=== PATIENT | male | born 1955 | race Caucasian/White ===

== ENCOUNTER 2016-09-02 06:52 | Inpatient (IN) | payer OTHER ==
--- NOTE | 2016-08-30 10:24 | HP ---
DATE OF CLINIC: 08/21/2016 JESSIE GIVENS : 1955 PLANNED PROCEDURE: Left Total Hip Arthroplasty DATE OF PROCEDURE: September 02, 2016 SURGEON: Riky Good M.D. PCP: Dr. Angus Abad HISTORY OF PRESENT ILLNESS Jessie Givens is a 60 year old male. * Medication list reviewed with patient allergy list reviewed with patient. * Tried NSAIDS * Tried Injections fluoro guided cortisone injection 04/04/16 * Has not tried Physical Therapy Mr. Givens is in today pre-operatively for his upcoming left total hip arthroplasty with Dr. Good on 09/02/16. Patient presents in good spirits and is ready to proceed. He states he picked up a "cold" from his grand-daughter resulting in a cough and diarrhea for a few days. This left him with some low back pain and intestinal cramping which has improved. No fever otherwise. No symptoms. No prior surgical complications. 60-year-old male well-known to me in the past for a right Verner hip resurfacing in 2009 from which he has done very well. Unfortunately, he has had progressive left hip pain from the groin radiating to his knee. It is becoming much more difficult to manage primarily with weight-bearing activities. He has no radicular symptoms. Workup has included prior radiographs as well as an intraarticular injection. This provided significant relief, but unfortunately for less than 24 hours. He has recently been seen on 05/09/16 by Dalton. Of note, he does have some problems with low back pain with some radiation into the right buttock. He has used non-steroidal anti-inflammatories with some improvement. He is interested in discussion of definitive management options. No significant medical comorbidities. He is a non-smoker. He does use recreational marijuana. CURRENT MEDICATION * Centrum Silver Adult 50+ Tablet 1 once a day 0 days, 0 refills * Naproxen 375 MG Tablet 1 twice a day 0 days, 0 refills * PriLOSEC 20 MG Capsule Delayed Release as needed 0 days, 0 refills PAST MEDICAL/SURGICAL HISTORY Reported: Medical: Depression and Asthma as a child. Surgical / Procedural: Surgical / procedural history Lymph gland removal, hernia sx, vasectomy Apr 1982 and replacement of a hip Right hip resurfacing 11/06/2009. Total Right Hip Replacement Rt R 11/06/09 by? Dr. Good. SOCIAL HISTORY Behavioral: Caffeine use and non-smoker quit smoking stopped in 2000 after smoking half a pack a day for 20 years. Smoking status: Former smoker. Alcohol: Alcohol 1-2 beers 2-3 times a week. Drug Use: Drug use marijuana and alcohol. 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 ALLERGIES * No Known Allergies FAMILY HISTORY Father ill thyroid disease Mother ill thyroid disease REVIEW OF SYSTEMS Systemic: No fever and no recent weight change. Head: No head symptoms. Cardiovascular: No cardiovascular symptoms. Pulmonary: No pulmonary symptoms. Gastrointestinal: Gastrointestinal symptoms mild cramping, BM's normalizing following recent cold. No change in urination. Psychological: No psychological symptoms. Skin: No skin lesions and no rash. PHYSICAL FINDINGS * Vitals taken 08/21/2016 10:03 am BP-Sitting L 144/84 mmHg 100 - 120/60 - 80 BP Cuff Size Regular Pulse Rate-Sitting 68 bpm 50 - 100 Temp-Oral 97.3 F 96 - 101 Height 66.75 in 64 - 74 Weight 149 lbs 123 - 215 Body Mass Index 23.5 kg/m2 Body Surface Area 1.78 m2 Pain Level 3 Ears, Nose, Throat: * ENT: normal. Lungs: * Clear to auscultation. Cardiovascular: Heart Rate and Rhythm: * Normal. Abdomen: * Normal. Neurological: Motor: * Dominant Hand = Right Hand. Patient is a well-developed, well-nourished male in no acute distress, normal appearing mood and affect. He ambulates with an antalgic, non-Trendelenburg gait. His pelvis is level. Evaluation of his left hip shows no focal tenderness over the trochanter, groin or sciatic notch. Flexion 85, just shy of neutral IR with exacerbation of groin pain, ER 40 degrees with posterior radiating pain. Abduction 25, adduction just shy of the midline and full extension. Thigh is soft and NT. No atrophy or asymmetry compared to the contralateral side. Evaluation of the knee shows skin integrity to be well-preserved, no wounds, rashes or lesions. No swelling or effusion. No focal periarticular tenderness. Motion is 0 to past 130 degrees. Calf is soft and NT. Distal light touch sensation and motor function are grossly intact and symmetric. Pulses are palpable. Sitting SLR is negative. Right hip shows non-irritable exam greater than 90 degrees of flexion, 30 degrees IR, 55 degrees ER, 50 degrees of abduction, he can adduct past the midline and extend fully. TESTS Pelvis and left hip from 03/27/16 reviewed. This shows marked degenerative changes of the left hip with complete superior joint space loss, superolateral femoral head flattening. Medially and Inferomedially there is a large osteophyte with sclerosis. There is blunting of the femoral head and neck junction laterally. Proximal mineralization appears normal. Limited view of the contralateral hip shows a Verner hip resurfacing arthroplasty in reasonable position and alignment. No change compared to prior films from 2009. ASSESSMENT * Localized primary osteoarthritis of the left hip Advanced DJD, left hip. Greater than 6 years post right Suleiman hip resurfacing arthroplasty, doing well clinically. PREVIOUS TESTS * Test: URINALYSIS WITH MICROSCOPIC Report Date: 08/14/2016 EPITHELIAL CELL 0-2 WBC 0-1 GLUCOSE NEGATIVE BACTERIA 1+ PH,URINE 6.0 SPEC. GRAVITY 1.025 KETONE 2+ NITRITE NEGATIVE RBC 10-15 BLOOD 1+ BILIRUBIN NEGATIVE APPEARANCE CLEAR PROTEIN 1+ COLOR ANUSHA LEUK ESTERASE NEGATIVE UROBILINOGEN NORMAL MUCUS 1+ * Test: CBC WITH DIFF Report Date: 08/14/2016 WBC 8.9 10*3/mL MCV 92.1 fL BASOPHIL 0.2 % RBC 5.09 10*6/uL NEUTROPHILS 71.8 % MCH 30.5 pg MCHC 33.0 g/dL RDW 12.0 % PLATELET COUNT 176 10*3/mL IMM NEUT % 0.6 % IMM NEUT # 0.1 10*3/mL MONOCYTES 10.4 % EOSINOPHIL 0.0 % Low HCT 46.9 % HGB 15.5 g/L LYMPHOCYTE 17.0 % ANC 6.4 10*3/mL * Test: PROTHROMBIN TIME Report Date: 08/14/2016 PROTIME 9.9 s INR 0.94 * Test: PARTIAL THROMBOPLASTIN TIME Report Date: 08/14/2016 APTT 30.1 s * Test: COMPREHENSIVE METABOLIC PANEL Report Date: 08/14/2016 ALT/SGPT 23 U/L ALBUMIN 4.2 g/dL ALB/GLOB RATIO 1.6 BUN 14 mg/dL BUN/CREAT RATIO 16 CALCIUM 9.0 mg/dL GLUCOSE 109 mg/dL High CREATININE 0.9 mg/dL SODIUM 138 meq/L POTASSIUM 3.8 meq/L CHLORIDE 100 meq/L CARBON DIOXIDE 32 meq/L High ANION GAP 10 meq/L TOT PROTEIN 6.8 g/dL GLOBULIN 2.6 g/dL BILI,TOTAL 0.5 mg/dL AST/SGOT 31 U/L ALK PHOSPHATASE 46 U/L GFR 86 High * Test: MRSA SCREEN Report Date: 08/15/2016 MRSA SCREEN NEGATIVE * Test: MSSA SCREEN Report Date: 08/15/2016 MSSA SCREEN POSITIVE FOR STAPHYLOCOCCUS AUREUS Abnormal * Test: URINE CULTURE Report Date: 08/15/2016 URINE CULTURE NO GROWTH AFTER 1 DAY THERAPY * Patient not eligible for fall risk assessment. PLAN * Unilateral primary osteoarthritis, left hip Physical Therapy: PT [facility] [phone] * OTHER Mupirocin 2 % OINT, apply into each nostril two times a day (morning & night) for 5 days prior to surgery date. NEED TO START ON AUGUST 28, 2016, 5 days, 0 refills OxyCONTIN 10 MG T12A, 1 po q 12 hours-TO BE USED FOR AFTER SURGERY, 10 days, 0 refills TraMADol HCl 50 MG TABS, 1 po q 6 hours prn pain-TO BE USED FOR AFTER SURGERY, 5 days, 0 refills OxyCODONE HCl 5 MG TABS, 1-2 po q 4 hours for break thru pain if needed-TO BE USED FOR AFTER SURGERY, 5 days, 0 refills * Total hip replacement -Left Discussed with patient in detail the limitations, expectations as well as risks and possible complications of surgery including, but not limited to wound problems or infection, neurovascular injury, continued hip pain or dysfunction, postop instability including the possibility of dislocation and/or postop leg length discrepancy, and the possibility of prosthetic wear or failure over time that may require additional operative or non-operative treatment. Patient also realizes the perioperative risks including risks associated with anesthesia and would like to proceed. A full PAR conference was held, questions and concerns addressed and informed consent was obtained. Patient will be sent from my office for completion of the preoperative workup. Patient will use enteric coated aspirin 325mg daily for 6 weeks postoperatively for DVT prophylaxis. Patient would like to perform their postop PT at [facility] with left total hip arthroplasty protocol. CARE TEAM Angus Abad MD [facility] CC: Angus Abad MD [facility] RS/sg
[~2016-09-02 06:52] MED LIST: CEFAZOLIN SODIUM 2 GRAM PREMIX 100 ML IV ONE; IV START KIT ONE; LACTATED RINGERS 1,000 ML ONE
[2016-09-02] MEDS ORDERED: OXYCODONE HCL 10 MG TAB.SR PO ONE ×2 (07:00→07:33)
[2016-09-02] MEDS ORDERED: TRANEXAMIC ACID 1,000 MG in SODIUM CHLORIDE 0.9% 100 ML IV PRN (07:00)
[2016-09-02] MEDS ORDERED: POLYMYXIN B SULFATE 500,000 UNITS, BACITRACIN 25,000 UNITS in SODIUM CHLORIDE 3 L IRRIG... IR PRN (07:00)
[2016-09-02] MEDS ORDERED: ONDANSETRON 4 MG/2ML 2 ML VIAL IV ONE (07:00)
[2016-09-02] MEDS ORDERED: CLONIDINE HCL 0.1 MG/24 HR (7 DAY PATCH) TD SCH (07:00)
[2016-09-02] MEDS ORDERED: BUPIVACAINE 0.25% (MDV) 20 ML in SODIUM CHLORIDE 0.9% FLUSH 20 ML IF PRN (07:00)
[2016-09-02] MEDS ORDERED: BUPIVACAINE 0.25% (MDV) 24 ML, MORPHINE SULFATE 8 MG, EPINEPHRINE 0.3 MG in SODIUM CHLO... IF PRN (07:00)
[2016-09-02] MEDS ORDERED: FAMOTIDINE 20 MG TABLET PO ONE (07:00)
[2016-09-02] MEDS ORDERED: CELECOXIB 200 MG CAPSULE PO ONE (07:00)
[2016-09-02] MEDS ORDERED: CEFAZOLIN SODIUM 2 GRAM PREMIX 100 ML IV PRN (07:00)
[2016-09-02] MEDS ORDERED: GABAPENTIN 600 MG TABLET PO ONE (07:00)
[2016-09-02] MEDS ORDERED: TRAMADOL HCL 50 MG TABLET PO ONE (07:00)
[2016-09-02] MEDS ORDERED: ONDANSETRON 4 MG/2ML 2 ML VIAL ONE (07:33)
[2016-09-02] MEDS ORDERED: TRAMADOL HCL 50 MG TABLET ONE ×2 (07:33→07:36)
[2016-09-02] MEDS ORDERED: CLONIDINE HCL 0.1 MG/24 HR (7 DAY PATCH) TD ONE (07:34)
[2016-09-02] MEDS ORDERED: FAMOTIDINE 20 MG TABLET ONE (07:34)
[2016-09-02] MEDS ORDERED: GABAPENTIN 600 MG TABLET ONE (07:34)
[2016-09-02] MEDS ORDERED: CELECOXIB 200 MG CAPSULE ONE (07:35)
[2016-09-02] MEDS ORDERED: BUPIVACAINE 0.75% SPINAL AMPUL 2 ML ONE (08:58)
[2016-09-02] MEDS ORDERED: PROPOFOL 40 ML IV ONE (08:58)
[2016-09-02] MEDS ORDERED: KETAMINE HCL UD SYRINGE 100 MG/2 ML IV ONE (08:58)
[2016-09-02] MEDS ORDERED: SPINAL PROCEDURAL TRAY 1 EACH ONE (08:58)
[2016-09-02] MEDS ORDERED: MIDAZOLAM HCL 5 MG/5 ML VIAL ONE (09:10)
[2016-09-02] MEDS ORDERED: EPHEDRINE SULFATE UD SYR 25 MG 25 MG/5 ML SYRINGE IV ONE (10:07)
[2016-09-02] MEDS ORDERED: PROMETHAZINE HCL 25 MG/ML VIAL IM PRN (10:33)
[2016-09-02] MEDS ORDERED: NALOXONE HCL 0.4 MG/ML VIAL IV PRN (10:33)
[2016-09-02] MEDS ORDERED: ONDANSETRON 4 MG/2ML 2 ML VIAL IV PRN (10:33)
[2016-09-02] MEDS ORDERED: ATROPINE SULFATE 0.4 MG/1 ML VIAL IV PRN (10:33)
[2016-09-02] MEDS ORDERED: FENTANYL 100 MCG/2 ML VIAL IV PRN (10:33)
[2016-09-02] MEDS ORDERED: LACTATED RINGERS 1,000 ML IV SCH (10:45)
[2016-09-02] MEDS ORDERED: PROPOFOL 20 ML IV ONE ×2 (10:54)
--- NOTE | 2016-09-02 11:31 | PCMBPN ---
Brief Post Op Note: Date of Procedure: 09/02/16 Preoperative Diagnosis: DJD Left hip Postoperative Diagnosis: 1. [Same] Procedure: left ROLO Surgeon: Riky Good MD Assist: Edmundo(RAFAT) Anesthesia: Spinal (Bahrke) Findings: DJD Condition: stable to PAR Complications: none IV Fluids: 700mLs of LR Urine Output: 175 mLs Estimated Blood Loss: 200 mLs Tourniquet Time: [N/A] Specimens: none Implants: trilock Drains: none
[2016-09-02] MEDS ORDERED: LACTATED RINGERS 1,000 ML ONE (11:52)
--- NOTE | 2016-09-02 12:19 | RAD ---
Exam: Single view pelvis COMPARISON: 03/27/2016 INDICATION: Status post left hip replacement. FINDINGS: Supine AP view of the pelvis was obtained. There has been left hip arthroplasty. Alignment is normal and no pericomponent fracture is identified. Limited evaluation of the right hip arthroplasty is grossly stable. Heterotopic ossification is again noted on the right. IMPRESSION: Expected postoperative appearance following left hip arthroplasty.
[2016-09-02] MEDS: FLUMAZENIL 0.1 MG/1 ML 5ML VIAL IV PRN ×2 (12:22→12:24)
[2016-09-02] MEDS ORDERED: CALCIUM CARBONATE 500 MG TAB.CHEW PO PRN (12:48)
[2016-09-02] MEDS ORDERED: HYDROXYZINE PAMOATE 25 MG CAPSULE PO PRN (12:48)
[2016-09-02] MEDS ORDERED: TEMAZEPAM 15 MG CAPSULE PO PRN (12:48)
[2016-09-02 13:19] VITALS: BMI 23.5
[2016-09-02] MEDS ORDERED: PUMP TUBING ONE (14:11)
[2016-09-02] MEDS: D5 1/2NS with 20 mEq KCL 1,000 ML IV SCH ×2 (14:26→21:07)
[2016-09-02] MEDS: ONDANSETRON 4 MG/2ML 2 ML VIAL IV PRN (17:43)
[2016-09-02] MEDS: CEFAZOLIN SODIUM 1 GRAM PREMIX 1 G in Premix (D5W) 50 ml 1 EACH IV SCH (17:44)
[2016-09-02] MEDS: HYDROMORPHONE HCL 0.5 MG/0.5 ML SYRINGE IV PRN ×2 (18:05→21:09)
[2016-09-02] MEDS: ACETAMINOPHEN 500 MG TABLET PO SCH (18:21)
[2016-09-02] MEDS ORDERED: TRAMADOL HCL 50 MG TABLET PO PRN (19:00)
[2016-09-02] MEDS: ASCORBIC ACID 500 MG TABLET PO SCH (21:08)
[2016-09-02] MEDS: DOCUSATE SODIUM 100 MG CAPSULE PO SCH (21:09)
[2016-09-02] MEDS: KETOROLAC TROMETHAMINE 30 MG/ML 1 ML VIAL IV PRN (21:09)
[2016-09-03] MEDS: ACETAMINOPHEN 500 MG TABLET PO SCH ×3 (01:09→12:36)
[2016-09-03] MEDS: CEFAZOLIN SODIUM 1 GRAM PREMIX 1 G in Premix (D5W) 50 ml 1 EACH IV SCH (03:08)
[2016-09-03] MEDS: HYDROMORPHONE HCL 0.5 MG/0.5 ML SYRINGE IV PRN (03:09)
[2016-09-03] MEDS: KETOROLAC TROMETHAMINE 30 MG/ML 1 ML VIAL IV PRN (03:09)
[2016-09-03] MEDS: ONDANSETRON 4 MG/2ML 2 ML VIAL IV PRN (03:09)
[2016-09-03] MEDS: D5 1/2NS with 20 mEq KCL 1,000 ML IV SCH ×2 (06:19→14:06)
[2016-09-03 06:51] LABS: HEMATOCRIT 39.7 % (32.0-52.0); HEMOGLOBIN 12.9 gm/l (14.0-18.0); MEAN CELL VOLUME 93.4 fl (80.0-94.0); MEAN CORPUSCULAR HEMOGLOBIN 30.4 pg (27.0-31.0); MEAN CORPUSCULAR HGB CONC 32.5 g/dl (33.0-37.0); RED CELL DISTRIBUTION WIDTH 12.4 % (11.5-14.5)
[2016-09-03] MEDS ORDERED: REMOVE PATCH 1 EACH UNIT TD SCH (07:00)
[2016-09-03 07:10] LABS: CALCIUM 8.5 mg/dL (8.6-10.3)
--- NOTE | 2016-09-03 08:36 | PDOC43 ---
- Subjective Findings: Pt seen this am up and doing well. He has already been up and walking with OT. Ready to begin PT Subjective: Reports Flatus, Reports Pain Tolerable, Reports Vomiting (one episode last evening. Doing ok at this point), Denies Chest Pain, Denies Shortness of Breath, Denies Fever - Objective Vital Signs Temperature 99.0 F 09/03/16 06:07 Pulse Rate 76 09/03/16 06:07 Respiratory Rate 20 09/03/16 06:07 Blood Pressure 125/74 09/03/16 06:07 O2 Saturation by Pulse Oximetry 97 09/03/16 06:07 Oxygen Delivery Method Nasal Cannula Oxygen Flow Rate 2 Laboratory 09/03/16 06:10 09/03/16 06:10 09/03/16 06:10 RBC 4.25 L MCHC 32.5 L Estimated GFR 114 H Calcium 8.5 L Active Medication Orders Category Date Time Status Acetaminophen [Tylenol] Med 09/02/16 18:30 Active 1,000 mg PO Q6H Ascorbic Acid [Vitamin C] Med 09/02/16 21:00 Active 500 mg PO BID Aspirin (Enteric Coated) [Ecotrin] Med 09/03/16 09:00 Active 325 mg PO DAILY Bisacodyl [Dulcolax] Med 09/05/16 11:[address] DAILY PRN Calcium Carbonate [Tums] Med 09/02/16 12:48 Active 1,000 - 2,000 mg PO Q2H PRN Celecoxib [Celebrex] Med 09/03/16 09:00 Active 200 mg PO DAILY D5 1/2NS with 20 mEq KCL [D51/2NS with 20 mEq KCL] 1, Med 09/02/16 12:48 Active 000 ml IV 125 mls/hr Docusate Sodium [Colace] Med 09/02/16 21:00 Active 100 mg PO BID Flumazenil [Romazicon] Med 09/02/16 12:26 Active 0.2 mg IV Q1M PRN Hydromorphone HCl [Dilaudid] Med 09/02/16 12:48 Active 0.5 mg IV Q1H PRN Hydroxyzine Pamoate [Vistaril] Med 09/02/16 12:48 Active 25 - 50 mg PO Q4H PRN Ketorolac Tromethamine [Toradol] Med 09/02/16 12:48 Active 30 mg IV Q6H PRN Magnesium Hydroxide [Milk of Magnesia] Med 09/03/16 11:33 Active 30 ml PO DAILY PRN Multivitamins [One-A-Day] Med 09/03/16 09:00 Active 1 tab PO DAILY Ondansetron 4 mg/2ml Vial [Zofran] Med 09/02/16 12:48 Active 4 - 6 mg IV Q6H PRN Oxycodone HCl [Roxicodone] Med 09/02/16 12:48 Active 5 - 10 mg PO Q4H PRN Pantoprazole Sodium [Protonix] Med 09/03/16 09:00 Active 40 mg PO DAILY Remove Patch Med 09/03/16 11:33 Once 1 each TD X1 ONE Sodium Chloride 0.9% Flush [Normal Saline 10ml Flush] Med 09/02/16 12:48 Active 10 - 50 ml IV PRN PRN Sodium Chloride 0.9% Flush [Normal Saline 10ml Flush] Med 09/02/16 17:00 Active 10 ml IV Q8HR Temazepam [Restoril] Med 09/02/16 12:48 Active 15 mg PO BEDTIME PRN Tramadol HCl [Ultram] Med 09/02/16 19:00 Active 50 mg PO Q6H PRN Intake and Output 09/01/16 09/02/16 09/03/16 23:59 23:59 23:59 Intake Total 3250 2643 Output Total 1765 2775 Balance 1485 -132 General: Afebrile HEENT: Atraumatic Lungs: Normal Air Movement Abdomen: Soft, Non-Distended Skin: Normal Color Neurological: Alert, Oriented x 4 Psych/Mental Status: Normal Affect, Normal Mood - Left Lower Extremity Motor: Extensor Hallucis Longus: 5/5, Tibialis Anterior: 5/5, Gastrocnemius: 5/5 , Peroneals: 5/5, Quadriceps: 3/5 Gross Sensation to Light Touch: Present: Deep Peroneal Nerve, Superficial Peroneal Nerve Motion: Calf soft NT Gentle ROM knee and hip without sig pain - Problems (1) Status post left hip replacement Status: AcuteAssessment/Plan: Pod#1 1. Physical Therapy:Mobilize with PT/OT, encouraged bed exercise 2. Pain Control:Per protocol 3. DVT Prophylaxis: ASA,foot pumps and mobility 4. Disposition: Doing well at this point 5. Medical Issues: Plan possible d/c this afternoon or tomorrow am. D/C when meets criteria
[2016-09-03] MEDS: DOCUSATE SODIUM 100 MG CAPSULE PO SCH (08:37)
[2016-09-03] MEDS: OXYCODONE HCL 5 MG TABLET PO PRN ×2 (08:37→12:36)
[2016-09-03] MEDS: ASCORBIC ACID 500 MG TABLET PO SCH (08:38)
[2016-09-03] MEDS ORDERED: ASPIRIN (ENTERIC COATED) 325 MG TABLET.EC PO SCH (09:00)
[2016-09-03] MEDS ORDERED: PANTOPRAZOLE 40 MG TABLET DR PO SCH (09:00)
[2016-09-03] MEDS ORDERED: MULTIVITAMINS 1 TAB TABLET PO SCH (09:00)
[2016-09-03] MEDS ORDERED: CELECOXIB 200 MG CAPSULE PO SCH (09:00)
[2016-09-03] MEDS ORDERED: MAGNESIUM HYDROXIDE 30 ML UDCUP PO PRN (11:33)
[2016-09-03] MEDS ORDERED: REMOVE PATCH 1 EACH UNIT TD ONE (11:33)
[2016-09-03 12:11] VITALS: BP 119/75
--- NOTE | 2016-09-04 10:35 | OP ---
JESSIE GIVENS [id number] : 1955 DATE OF SURGERY: September 02, 2016 PREOPERATIVE DIAGNOSIS: Degenerative joint disease left hip POSTOPERATIVE DIAGNOSIS: Same PROCEDURE: Left Total Hip Arthroplasty COMPONENTS: Tri-Lock size 4 standard offset press-fit femoral stem with a +1.5 40mm Delta ceramic femoral head, 56mm press-fit Windsor 100 acetabular shell with a neutral cross-linked polyethylene liner. SURGEON: Florentino ASSIST: Edmundo PINEDA) ANESTHESIA: Spinal per Bahrke EBL: 200 cc URINE OUTPUT: 175 cc IVF REPLACEMENT: Per anesthesia, 700 cc crystalloid DRAINS: None COMPLICATIONS: None HISTORY: Briefly, patient is a 60-year-old male with clinical and radiographic evidence most consistent with degenerative joint disease of their left hip. They have failed traditional nonoperative measures and at this point desire elective surgical management. For additional details, refer to previously dictated Preoperative History and Physical Exam. A full PAR conference was held, questions and concerns were addressed, and informed consent was obtained. FINDINGS: Advanced degenerative changes with a fairly large medial acetabular osteophyte as well as a posterior-inferior osteophyte. There was significant femoral head deformity as expected with superolateral flattening and eburnation. PROCEDURE: The patient was taken to the operating room and after previously described anesthesia was placed in the lateral decubitus position on the operating room table and held with the peg board positioner. Jose Antonio prominences were well padded and an axillary roll was placed. The left hip girdle and lower extremity were then prepped and draped out in the usual sterile fashion. Preoperative antibiotics were given empirically. Intraoperative DVT prophylaxis consisted of bilateral mechanical foot pumps. Personal filtration suits were used as was a closed room environment. An oblique ten centimeter incision was made using the minimally invasive guide posterior and extending slightly proximal to the greater trochanter. We dissected through subcutaneous tissue down to the gluteus fascia. Electrocautery was used at this point and throughout the duration of the case to establish and maintain hemostasis. The gluteus fascia was incised in line with the incision and the muscle fibers split to expose the underlying bursal tissue. Tranexamic acid was infiltrated over 10 minutes prior to incision, 1 gram dose per protocol. A similar 2nd dose was given at initiation of closure. A deep self retaining field retractor was placed. The short external rotators were identified, the piriformis was tagged and reflected with the underlying capsule which was reflected in a U fashion off the femoral neck and tagged as well for later repair. Release of the capsule allowed for dislocation of the hip and the femoral head was brought up into the operative field. A femoral neck cut was made proximal to the lesser trochanter as per our preoperative templating. We then translated the femur anteriorly exposing the acetabulum. The remaining labrum was excised circumferentially. We reamed to the true acetabular floor and then incrementally up to a 55 as per our preoperative plan at which point we noted circumferential bleeding cancellous bone. This was trialed at approximately 40 degrees of abduction and 20 degrees of anteversion with good fit and stability. We then impacted the true acetabular component which was seated completely. An apical hole cover was placed and we impacted the neutral crosslinked polyethylene liner. Attention was then directed back to the femur. The remaining soft tissue was cleared from the piriformis fossa and we use a rongeur and box osteotome to enter the proximal femoral canal followed by the canal seeker and then the broach only system up to a size 4. There was a slight metaphyseal/diaphyseal miss-match so I broached with the 3 to get lateral. I felt the 4 was a better proximal fill. This was trialed with a standard offset +1.5. The hip was then reduced with good stability to 70 degrees of internal rotation in 90 degrees of flexion and full extension with no instability on external rotation. There was good soft tissue balance and approximately equal leg lengths. Satisfied, trial components were removed and we impacted the true femoral stem. The trunnion was then cleaned and dried and the femoral head was impacted. The hip was then reduced with stability as previously discussed. Satisfied, we turned our attention to closure. The wound was copiously irrigated with antibiotic pulsatile lavage. We then advanced the capsule and piriformis to the gluteus medius insertion. The gluteus fascia was closed with a running number two PDO StratoFix suture. 1st periarticular injection was given at this point per protocol into the capsule, synovium, gluteus and external rotators. The subcutaneous tissue was closed with interrupted 2-0 and 3-0 Vicryl and the skin was closed with a running 4-0 Monocryl stitch with Indermil and Steri-Strips. The 2nd periarticular injection was done at this point per protocol into the subcutaneous tissue superiorly and anteriorly to the incision. A sterile hip dressing was then applied, the patient was returned to the supine position, transferred to their hospital bed, and sent to the postoperative recovery room in stable condition. They tolerated the procedure well. Sponge, instrument, and needle count were correct. SADE/mrw CC: Angus Abad MD PT [facility]
--- NOTE | 2016-09-04 12:15 | DS ---
Byron GIVENS William [id number] : 1955 DATE OF ADMISSION: September 02, 2016 DATE OF DISCHARGE: September 03, 2016 DISCHARGE DIAGNOSES: Left hip osteoarthritis. HOSPITAL PROCEDURES: Left hip arthroplasty. SURGEON: Riky Good M.D. BRIEF HISTORY: Patient is a 60-year-old male with clinical and radiographic evidence of advanced DJD of their left hip. For the full history please see the chart note. BRIEF HOSPITAL COURSE: Patient was admitted on September 02, 2016 Dr. Riky Good performed a left total hip arthroplasty. Patient was moved to the recovery room in stable condition. They were given 4 doses of antibiotic for empiric coverage. DVT prophylaxis consisted of enteric-coated aspirin, BC hose and AV foot pumps. PT was instituted postop day, 0 with left total hip arthroplasty protocol, weightbearing as tolerated. Their incision site remained benign, their vital signs remained stable and they remained neurally and vascularly intact through the duration of the stay. They were discharged home postop day, 1 to continue outpatient PT at [facility] with left total hip arthroplasty protocol, weightbearing as tolerated keeping total hip precautions in mind. DISCHARGE INSTRUCTIONS: 1. Keep the wound site clean and dry, change dressing daily or as needed. 2. Continue the use of CB hose bilaterally. 3. Ice pack over the wound site prn. 4. Continue total hip precautions. 5. Outpatient PT at [facility] with left total hip arthroplasty protocol, weightbearing as tolerated. MEDICATIONS: 1. Patient is to resume normal preop medications. 2. Anti-coagulation will be with enteric-coated aspirin 325 mg per day for six weeks. 3. Pain management will be with OxyContin, 10mg every 12 hours x 10 days, Oxycodone, 5mg 1-2 every 4 hours prn for breakthrough pain, and Tramadol, 50mg every 6 hours prn pain, Celebrex 200 mg one by mouth every day for two weeks for inflammation. 4. Patient was also advised on utilization of a multi-vitamin with mineral daily as well as Vitamin C, 500mg, daily for 1 month. 5. Patient encouraged to take an iron supplement in the form of ferrous sulfate, 325mg daily for 4 weeks. 6. Colace, 100mg, b.i.d. until regular bowel movement. FOLLOW-UP: Please return to the clinic as scheduled for your first scheduled postop check. Prior to that point in time please call with any questions or concerns. Job [id number] CC: Jan Abad M.D.
[2016-09-05] MEDS ORDERED: BISACODYL 10 MG SUP PR PRN (11:33)
== END 2016-09-03 16:55 | disposition home or self-care (01) | DRG 470 ==
LOC: OR 06:52 → MS 13:18
PROVIDERS: ADMIT Orthopaedic Surgery; ATTEND Orthopaedic Surgery
PROC: 0SRB04A Replacement of Left Hip Joint with Ceramic on Polyethylene Synthetic Substitute, Uncemented, Open Approach (ICD-10-PCS; principal; 2016-09-02)
DX: M16.12 Unilateral primary osteoarthritis, left hip (principal); F12.90 Cannabis use, unspecified, uncomplicated; Z22.321 Carrier or suspected carrier of Methicillin susceptible Staphylococcus aureus; Z87.891 Personal history of nicotine dependence